=== PATIENT | male | born 1955 | race Two or more races ===

== ENCOUNTER 2024-09-24 07:17 | Inpatient (IN) | payer MEDICARE, BC, SELFPAY ==
[2024-09-24] VITALS (11 sets, daily range): BP systolic 111–188; BP diastolic 66–114; PULSE 66–126; RESP 15–94; TEMP 36.4–36.9; O2SAT 92–97; BMI 30.7
--- NOTE | 2024-09-24 | XR_ITS ---
Examination: Abdomen AP single view Technique: AP portable supine abdomen, single view Exam date and time: September 24, 2024 2056 hrs. Indications: Abdominal pain and distention today, small bowel obstruction on CT abdomen pelvis September 24, 2024 10:41 AM, 6 hour 30 minute delayed film Findings: Contrast remains in the stomach Air distended small bowel loops Impression: Small bowel obstruction pattern multiple additional delayed films will be obtained
--- NOTE | 2024-09-24 | XR_ITS ---
Examination: Abdomen AP single view Technique: AP portable supine abdomen, single view Exam date and time: September 24, 2024 at 10:53 PM Indications: Abdominal pain and distention this week, small bowel obstruction pattern on CT abdomen pelvis September 24, 2024 10:40 AM, 8 hour 30 minute delayed film post small bowel series Findings: Contrast remains essentially in the stomach Air distended small bowel loops Impression: Small bowel obstruction pattern Multiple additional delayed films will be obtained
--- NOTE | 2024-09-24 07:53 | PC.NURSE ---
PT COMING IN FROM LOBBY WITH C/O GENERAL LOWER ABD PAIN X1 DAY; PT HAS HX OF COLORECTAL CANCER WITH BOWEL SURGERY IN 2015 WELL HYPERTENSION. PER PT, I'M CURRENTLY ON REMISSION. PT HAS OSTOMY BAG, AND PER PT, IT FEELS LIKE IT'S PLUGGED UP. WE TRIED FLUSHING IT LAST NIGHT BUT IT DIDN'T WORK. NOTHING HAS COME OUT. PT CONNECTED TO MONITORS AT THIS TIME.
--- NOTE | 2024-09-24 07:54 | PC.NURSE ---
DR. MCKEON AT BEDSIDE ASSESSING PT.
--- NOTE | 2024-09-24 08:08 | EKG_ITS ---
[facility] Test Date: 2024-09-24 Pat Name: LORI MACIAS Department: Room: - Gender: Male Leadership Recruiter: : [id number] Requested By: Julio Mata Order Number: [id number] Reading MD: Julio Mata Measurements Intervals [place] Rate: 100 P: 10 VT: 156 QRS: -87 QRSD: 87 T: 42 QT: 345 QTc: 447 Interpretive Statements SINUS TACHYCARDIA PATTERN CONSISTENT WITH PULMONARY DISEASE LEFT ANTERIOR FASCICULAR BLOCK [QRS AXIS <= -45, QR IN I, RS IN II] Compared to ECG 10/10/2023 12:22:58 Left anterior fascicular block now present Sinus rhythm no longer present /store/S0/[id number].pdf
[2024-09-24] MEDS: MORPHINE SULF INJ 10 MG/ML VIAL 4 MG IVP (08:21)
[2024-09-24] MEDS: ONDANSETRON INJ 2 MG/ML INJ 2 ML 4 MG IV ×3 (08:21→16:26)
[2024-09-24] MEDS: SODIUM CHLORIDE 0.9% 1000 ML 1,000 ML 999 ML IV ×2 (08:24→11:19)
--- NOTE | 2024-09-24 08:29 | PD.EDADULT ---
ED General RME/HPI General Chief complaint: Abdominal Pain Stated complaint: Abdominal pain, vomiting Time Seen by Provider: 09/24/24 08:05 Arrival date/time: 09/24/24 07:17 RME / HPI RME / HPI narrative: 69-year-old male with a history of colon cancer status post partial colectomy (+ colostomy), who presents to the emergency department with 2 days of worsening diffuse abdominal pain and no colostomy output. He also started noticing copious belching and nausea and vomiting. He is unclear whether or not he has flatus/air into his colostomy. Patient states this is similar to 2018 when he had a bowel blockage . Related Data Home Medications ?Medication ?Instructions ?Recorded ?Confirmed tamsulosin 0.4 mg capsule (Flomax) 0.4 mg PO QDAY ##0 11/30/16 Allergies Allergy/AdvReac Type Severity Reaction Status Date / Time NKA* Allergy Uncoded 09/24/24 08:24 Review of Systems Review of Systems Systems Reviewed: All systems reviewed, normal except as documented ED Exam Narrative Physical exam: GENERAL APPEARANCE: AxOx4, generally well-appearing, no acute distress. HEENT: NC, AT. MMM. EOMI, clear conjunctiva, oropharynx clear. NECK: Supple without lymphadenopathy. No stiffness or restricted ROM. HEART: Normal rate and regular rhythm, normal S1/S1, no m/r/g LUNGS: CTAB, moving air well. No crackles or wheezes are heard. ABDOMEN: Soft, but distended, tympanitic, with diffuse abdominal pain, colostomy stoma intact. With good bowel sounds heard. BACK: No midline C/T/L spine pain or deformity, No CVAT, no obvious deformity. EXTREMITIES: Without cyanosis, clubbing or edema. MUSCULOSKELETAL: FROM of all major joints, no chest tenderness NEUROLOGICAL: Grossly nonfocal. Alert and oriented, moving all 4 extremities. CN not formally tested but appear grossly intact. Observed to ambulate with normal gait. Skin: Warm and dry without any rash. Course Quality Measures none Orders Category Date Time Status CT Screening NOW Care 09/24/24 08:56 Active EKG (ED ONLY) *Do not use* NOW Care 09/24/24 08:09 Completed Insert NG / OG tube NOW Care 09/24/24 12:20 Active NG / OG Tube to LIS NOW Care 09/24/24 12:[address] abdomen pelvis w con Stat Exams 09/24/24 08:56 Completed EKG (ED Only) Stat Exams 09/24/24 08:08 Draft CBC Stat Lab 09/24/24 07:55 Completed CMP [Comprehensive Metabolic Panel] Stat Lab 09/24/24 07:55 Completed Morphine Inj Med 09/24/24 08:10 Discontinued 4 mg IVP X1 ONE Morphine Inj Med 09/24/24 09:38 Discontinued 6 mg IVP X1 ONE Ondansetron Inj [Zofran Inj] Med 09/24/24 08:11 Discontinued 4 mg IV X1 ONE Ondansetron Inj [Zofran Inj] Med 09/24/24 09:44 Discontinued 4 mg IV X1 ONE Sodium Chloride 0.9% 1000 ml [Ns] 1,000 ml Med 09/24/24 08:10 Discontinued IV 999 mls/hr Sodium Chloride 0.9% 1000 ml [Ns] 1,000 ml Med 09/24/24 11:16 Discontinued IV 999 mls/hr Vital Signs Vital signs: Vital Signs Temperature 97.9 F 09/24/24 07:28 Pulse Rate 126 H 09/24/24 07:28 Respiratory Rate 16 09/24/24 07:28 Blood Pressure 111/66 09/24/24 07:28 Pulse Oximetry (%) 94 L 09/24/24 07:28 Oxygen Delivery Method Room Air 09/24/24 07:28 [facility] Patient data External records reviewed:: [facility] Clinical information provided by:: patient Social determinants that could affect healthcare access:: none Patient has the following chronic illnesses:: Hypertension, colostomy How is presenting disease/condition affected by chronic disease/condition?: uneffected by Evaluation data The following diagnostics were reviewed and interpreted by me:: lab results and radiology exam(s) Lab and/or radiology exams considered but not ordered:: None Interpretation Summary: As per narrative Medications Medications considered but not ordered:: None Medication administrations:: Medication Administration History Discontinued Medications Sodium Chloride (Ns) 1,000 mls @ 999 mls/hr IV .Q1H1M ONE Stop: 09/24/24 09:10 Last Infusion: 09/24/24 09:27 Dose: Infused Documented By: Admin: 09/24/24 08:24 Dose: 999 mls/hr Documented By: Sodium Chloride (Ns) 1,000 mls @ 999 mls/hr IV .Q1H1M ONE Stop: 09/24/24 12:16 Last Admin: 09/24/24 11:19 Dose: 999 mls/hr Documented By: GM Morphine Sulfate (Morphine Sulf Inj 10 Mg/Ml Vial) 4 mg IVP X1 ONE Stop: 09/24/24 08:11 Last Admin: 09/24/24 08:21 Dose: 4 mg Documented By: GM Morphine Sulfate (Morphine Sulf Inj 10 Mg/Ml Vial) 6 mg IVP X1 ONE Stop: 09/24/24 09:39 Last Admin: 09/24/24 09:48 Dose: 6 mg Documented By: GM Ondansetron HCl (Ondansetron Inj 2 Mg/Ml Inj 2 Ml) 4 mg IV X1 ONE; Protocol Stop: 09/24/24 08:12 Last Admin: 09/24/24 08:21 Dose: 4 mg Documented By: GM Ondansetron HCl (Ondansetron Inj 2 Mg/Ml Inj 2 Ml) 4 mg IV X1 ONE; Protocol Stop: 09/24/24 09:45 Last Admin: 09/24/24 09:48 Dose: 4 mg Documented By: GM Above Consultations Consultation(s) initiated? (list below): No Diagnosis Differential Diagnosis ED Complaint MDM: Small bowel obstruction, constipation, stricture Most likely diagnosis given after review of the tests above:: Small bowel obstruction Admission Indicated Admission indicated?: indicated Explain why admission is indicated or not indicated:: As per narrative Admission Request Was there a request for admission?: Yes Admission Attestation Admission request attestation: Discussed case with [Dr. Bro] from Hospitalist service regarding admission. Discussed patients ED course, exam findings, labs, and radiology results. The Hospitalist [agrees] to accept the patient for admission. Disposition Plan Disposition Plan: Admit Medical Decision Making MDM Narrative MDM Narrative: 69-year-old male with a history of abdominal surgery/partial colectomy, small bowel obstruction presents emerged department subjective symptoms consistent with a small bowel obstruction. Patient was controlled symptomatically with IV pain medicines and antiemetics. IV fluids were started. CT confirms a high-grade mechanical small bowel obstruction. Case was discussed with hospital service and agrees to admit. Differential Diagnosis Differential Diagnosis: Small bowel obstruction, constipation, stricture Lab Data 09/24/24 07:55 09/24/24 07:55 Labs: Lab Results 09/24/24 Range/Units 07:55 WBC 11.6 H (3.8-10.6) Thou/mm3 RBC 5.70 (4.50-5.90) Miln/mm3 Hgb 17.7 H* (13.5-16.0) g/dL Hct 49.2 (41.0-53.0) % MCV 86 (80-100) fL MCH 31.1 (25.0-35.0) pg MCHC 36.0 (31.0-37.0) g/dl RDW Std Deviation 39.0 (35.1-43.9) fL Plt Count 253 (140-440) Thou/mm3 Neut % (Auto) 89 H (37-80) % Lymph % (Auto) 5 L (10-50) % [place] % (Auto) 5 (0-12) % Eos % (Auto) 0 (0-10) % Baso % (Auto) 0 (0-2.5) % Neut # (Auto) 10.3 H (1.8-7.7) Thou/mm3 Lymph # (Auto) 0.6 L (1.0-4.8) Thou/mm3 [place] # (Auto) 0.6 (0.0-0.8) Thou/mm3 Eos # (Auto) 0.0 (0.0-0.5) Thou/mm3 Baso # (Auto) 0.0 (0.0-0.2) Thou/mm3 Immature Gran # (Auto) 0.04 H (0.00-0.00) Thou/mm3 Absolute Nucleated RBC 0.00 (0.00-0.00) Thou/mm3 Immature Gran % 0 (0-0) % Nucleated RBC % 0 (0) /100 WBC Sodium 133 L (136-145) mMol/L Potassium 4.2 (3.4-5.1) mMol/L Chloride 98 (98-107) mMol/L Carbon Dioxide 21.8 (20.0-31.0) mMol/L Anion Gap 13 (7-16) BUN 16 (9-23) mg/dL Creatinine 1.5 H (0.6-1.3) mg/dL Estim Creat Clear Calc 55.2 L (>60) mL/min eGFR 50 L (60 - ) See Note BUN/Creatinine Ratio 11 L (12-20) Ratio Glucose 189 H (74-106) mg/dL Calculated Osmolality 272 L (275-295) Calcium 11.2 H (8.3-10.6) mg/dL Corrected Calcium 11.2 H (8.5-10.1) mg/dL Total Bilirubin 1.1 (0.3-1.2) mg/dL AST 30 (0-34) U/L ALT 39 (10-49) U/L Alkaline Phosphatase 84 (46-116) U/L Total Protein 7.7 (5.7-8.2) gm/dL Albumin 4.8 (3.4-4.8) gm/dL Globulin 2.9 (2.3-3.5) gm/dL Albumin/Globulin Ratio 1.7 (1.2-2.2) Discharge Plan Plan Patient Disposition: Admit Acute Care w/in Hospital Prescriptions/Referrals Prescriptions/Med Rec: No Action tamsulosin [Flomax] 0.4 MG capsule,extended release 24hr 0.4 mg PO QDAY Qty: 0 Referrals: Phyllis Sánchez FNP [Primary Care Provider] - In 1 week Problem List Clinical Impression: Complete small bowel obstruction Patient/Caregiver Discharge Instructions Print Language: Kittitian Stand Alone Forms: Kristel Award Info., Patient Portal Info Letter
[2024-09-24 08:49] LABS: Basophils % (Auto) 0 % (0-2.5); Eosinophils % (Auto) 0 % (0-10); Hematocrit 49.2 % (41.0-53.0); Hemoglobin 17.7 g/dL (13.5-16.0); Immature Granulocytes % (Auto) 0 % (0-0); Immature Granulocytes Auto 0.04 Thou/mm3 (0.00-0.00); Lymphocytes # (Auto) 0.6 Thou/mm3 (1.0-4.8); Lymphocytes % (Auto) 5 % (10-50); Mean Corpuscular Hemoglobin 31.1 pg (25.0-35.0); Mean Corpuscular Volume 86 fL (80-100); Monocytes # (Auto) 0.6 Thou/mm3 (0.0-0.8); Monocytes % (Auto) 5 % (0-12); Neutrophils # (Auto) 10.3 Thou/mm3 (1.8-7.7); Neutrophils % (Auto) 89 % (37-80); Nucleated Red Blood Cell % 0 /100 WBC (0); Platelet Count 253 Thou/mm3 (140-440); White Blood Count 11.6 Thou/mm3 (3.8-10.6)
--- NOTE | 2024-09-24 08:56 | XR_ITS ---
Examination: CT abdomen with intravenous contrast CT pelvis with intravenous contrast 2-D coronal reconstructions 2-D sagittal reconstructions Date and time of exam:September 24, 2024 10:40 AM Comparison November 30, 2016. Abdominal pain at the colostomy site, no bowel movement beginning 2 days ago CTDI: vol (mGy) 9.73 DLP: (mGycm) 640 Technique: Multiple axial sections of the abdomen and pelvis have been obtained. 64 slice high-resolution scanner used. 3 mm axial sections have been obtained, post intravenous injection 30 cc [id number] 2-D sagittal, coronal reconstructions obtained. Low dose protocols were performed. One or more of the following dose reduction techniques were used; automated exposure control, adjustment of the mA and/or KV according to patient size, use of iterative reconstruction technique. Findings: Mild atelectasis in the lower lung zones No focal liver lesions Multiple gallstones Gallbladder wall does not appear thickened Spleen is not enlarged No pancreatic or adrenal mass No renal or ureteral calculi, no hydronephrosis Numerous fluid distended small bowel loops, small bowel obstruction pattern This does not appear to be secondary to incarcerated bowel at the colostomy site Normal appendix Postoperative changes rectosigmoid with scarring in the perirectal region Bladder intact Impression: High-grade mechanical small bowel obstruction, consider Gastrografin small bowel series follow-up
[2024-09-24 09:18] LABS: Alanine Aminotransferase 39 U/L (10-49); Albumin, Serum 4.8 gm/dL (3.4-4.8); Albumin/Globulin Ratio 1.7 (1.2-2.2); Alkaline Phosphatase 84 U/L (46-116); Anion Gap 13 (7-16); Aspartate Amino Transferase 30 U/L (0-34); BUN/Creatinine Ratio 11 Ratio (12-20); Bilirubin,Total 1.1 mg/dL (0.3-1.2); Blood Urea Nitrogen 16 mg/dL (9-23); Calcium 11.2 mg/dL (8.3-10.6); Calcium (Corrected) 11.2 mg/dL (8.5-10.1); Carbon Dioxide 21.8 mMol/L (20.0-31.0); Chloride 98 mMol/L (98-107); Creatinine (Component) 1.5 mg/dL (0.6-1.3); Estimated Creatinine Clearance 55.2 mL/min (>60); Globulin 2.9 gm/dL (2.3-3.5); Glucose 189 mg/dL (74-106); Osmolality,Calculated 272 (275-295); Potassium 4.2 mMol/L (3.4-5.1); Sodium 133 mMol/L (136-145); Total Protein 7.7 gm/dL (5.7-8.2); eGFR 50 See Note
--- NOTE | 2024-09-24 09:39 | PC.NURSE ---
DR. MCKEON NOTIFIED OF PATIENT'S COMPLAINT OF 8/10 PAIN AND NEW ORDER RECEIVED FOR MORPHINE 6MG IV ONCE NOW.
[2024-09-24] MEDS: MORPHINE SULF INJ 10 MG/ML VIAL 6 MG IVP (09:48)
--- NOTE | 2024-09-24 11:01 | PC.NURSE ---
DR. MCKEON MADE AWARE PT STILL TACHYCARDIC AT 109 AND WBC ELEVATED. RN SEEKING CLARIFICATION FORM DR. MCKEON IF SEPSIS ALERT TO BE INITIATED; PER DR. MCKEON, DON'T INITIATE SEPSIS ALERT AT THIS TIME; PT WAS VOMITING. GIVE ANOTHER 1L OF NS BOLUS TO PT FOR NOW.
--- NOTE | 2024-09-24 13:05 | XR_ITS ---
Examination: Small bowel series with KUB Exam date and time: 04/24/2024 1425 hrs. Indications: Abdominal pain and distention this week, constipation, no bowel movement beginning 2 days ago through colostomy site Technique And Findings: AP portable supine abdomen obtained labeled 1 minute with contrast to document: Extensive air distended small bowel loops noted Cholelithiasis Impression: Small bowel obstruction pattern Numerous additional delayed films will be obtained
--- NOTE | 2024-09-24 13:14 | XR_ITS ---
Examination: AP chest portable single view Technique: AP portable chest single view Exam date and time: September 24, 2024 1318 hrs. Indications: Post orogastric tube placement Findings: Orogastric tube sidehole is at the GE junction Normal heart size Ectatic thoracic aorta No lobar pneumonia or pulmonary edema Impression: Advance the orogastric tube 7 cm
--- NOTE | 2024-09-24 13:16 | ESHP_ITS ---
Documentation for date of: 09/24/24 HPI History of Present Illness History of present illness: This is a 69-year-old male with PMHx of colon cancer s/p colectomy versus partial colectomy in 2014 permanent ostomy bag, previous SBO in 2018, hypertension, sciatica nerve pain and BPH, presenting with 4 days of constipation and abdominal pain. Stools was 4 days ago and was hard and nonbloody. This morning patient felt more nauseous, and vomited the contents once. Patient states he takes DOCUSATE daily at home for constipation, however admitted to decreased oral intake this to weather change. Denies headaches, LOC, fever, chills, abnormal weight loss or weight gain, chest pain, shortness of breath, diarrhea, or urinary symptoms. ED COURSE: Afebrile, BP 134/87, HR 126, satting 94% on 3 L. EKG sinus tachycardia, no acute ST changes. Hemoglobin 17.7, WBC 11.6, PLT 253. Sodium 133, creatinine 1.5, calcium 11.2. UA negative for UTI. CT abdomen showed High-grade mechanical small bowel obstruction. Patient started on NGT suction and fluid resuscitation. Internal medicine team consulted. Will admit patient for SBO and JUAN. PMHx: s/p colectomy versus partial colectomy in 2014 permanent ostomy bag, previous SBO in 2018, hypertension, sciatica nerve pain and BPH PSHx: Colectomy 2014 MEDS: METOPROLOL, GABAPENTIN, DOCUSATE, FLOMAX ALLERGIES: NKA SH: Denies tobacco, EtOH or drug use. Review of Systems Review of Systems Systems Reviewed: All systems reviewed, normal except as documented Exam Vital Signs Temp Pulse Resp BP Pulse Ox O2 Del Method O2 Flow Rate 98.1 F 115 H 18 134/87 H 95 Nasal Cannula 3 09/24/24 13:00 09/24/24 13:00 09/24/24 13:00 09/24/24 13:00 09/24/24 13:00 09/24/24 13:00 09/24/24 13:00 Narrative Exam 3 GENERAL Normal appearing elderly male, in mild distress due to pain and constipation HEENT NCAT.?[place]. Oral mucosa slightly dry. Patent Nares NECK Supple, nontender, no thyromegaly, no meningismus, no JVD, no step offs HEART Tachycardic, regular rhythm, no m/g/r LUNGS CTAB, no w/r/r. Symmetrical chest rise. No intercostal subcostal retraction ABDOMEN Distended, tense, mildly tender to palpation, no guarding or rebound, overall decreased bowel sounds throughout. Ostomy bag in place, empty and intact. EXTREMITIES Nontender.? No edema/cyanosis.?Moves all 4 extremities well, with full ROM and good CSM SKIN Warm and dry, no jaundice/rashes MSK No lumbar or midline, no CVA, no paraspinal muscle spasm or tenderness NEURO BRUCE x4, CN II-XII grossly intact.?No focal neurologic deficits PSYCH Normal mood and affect, cooperative, no SI or HI or hallucinations Results: Labs 09/24/24 07:55 09/24/24 07:55 Labs: Short CBC 09/24/24 Range/Units 07:55 WBC 11.6 H (3.8-10.6) Thou/mm3 Hgb 17.7 H* (13.5-16.0) g/dL Hct 49.2 (41.0-53.0) % Plt Count 253 (140-440) Thou/mm3 BMP 09/24/24 07:55 Sodium 133 L Potassium 4.2 Chloride 98 Carbon Dioxide 21.8 BUN 16 Creatinine 1.5 H Glucose 189 H Calcium 11.2 H Liver Function 09/24/24 Range/Units 07:55 Total Bilirubin 1.1 (0.3-1.2) mg/dL AST 30 (0-34) U/L ALT 39 (10-49) U/L Alkaline Phosphatase 84 (46-116) U/L Albumin 4.8 (3.4-4.8) gm/dL Quality Measures Quality Measures none Advance care planning discussed with:: patient Medications Home Medications and Allergies Home Medications ?Medication ?Instructions ?Recorded ?Confirmed ?Type tamsulosin 0.4 mg capsule (Flomax) 0.4 mg PO QDAY ##0 11/30/16 History Allergies Allergy/AdvReac Type Severity Reaction Status Date / Time NKA* Allergy Uncoded 09/24/24 08:24 Visit Medications Discontinued Medications Sodium Chloride (Ns) 1,000 mls @ 999 mls/hr IV .Q1H1M ONE Stop: 09/24/24 09:10 Last Infusion: 09/24/24 09:27 Dose: Infused Sodium Chloride (Ns) 1,000 mls @ 999 mls/hr IV .Q1H1M ONE Stop: 09/24/24 12:16 Last Admin: 09/24/24 11:19 Dose: 999 mls/hr Morphine Sulfate (Morphine Sulf Inj 10 Mg/Ml Vial) 4 mg IVP X1 ONE Stop: 09/24/24 08:11 Last Admin: 09/24/24 08:21 Dose: 4 mg Morphine Sulfate (Morphine Sulf Inj 10 Mg/Ml Vial) 6 mg IVP X1 ONE Stop: 09/24/24 09:39 Last Admin: 09/24/24 09:48 Dose: 6 mg Ondansetron HCl (Ondansetron Inj 2 Mg/Ml Inj 2 Ml) 4 mg IV X1 ONE; Protocol Stop: 09/24/24 08:12 Last Admin: 09/24/24 08:21 Dose: 4 mg Ondansetron HCl (Ondansetron Inj 2 Mg/Ml Inj 2 Ml) 4 mg IV X1 ONE; Protocol Stop: 09/24/24 09:45 Last Admin: 09/24/24 09:48 Dose: 4 mg Assessment & Plan Plan In summary: 69-year-old male with PMHx of colon cancer s/p colectomy versus partial colectomy in 2014 permanent ostomy bag, previous SBO in 2018, hypertension, sciatica nerve pain and BPH, admitted for acute high-grade SBO and JUAN. Patient started on NG tube suction and GASTROGRAFIN study. Continued on fluid rehydration. High-grade SBO History of colon cancer S/p colectomy, ostomy bag 2014 Presenting with 4 days of abdominal pain and constipation. Last BM 4 days ago with solids and hard, nonbloody. Patient was also nauseous and had an episode of vomiting this morning. History of SBO in 2018, required hospital admission. Distended, mildly tender abdomen with diffusely decreased bowel sounds on exam. No rigidity or guarding, no signs of peritonitis. CT abdomen showed high-grade SBO. ? Continue n.p.o. ? Continue NGT suction ? Continue small bowel series ? Continue ONDANSETRON PRN Prerenal JUAN Hypercalcemia Erythrocytosis In settings of decreased fluid intake, as reported by patient. CR 1.5 on admission, no history of renal disease. Signs of dehydration on exam, dry mucosa, tachycardia. Received 2L NS in ED. calcium 11.2, hemoglobin 17.7, likely concentration all in settings of dehydration. Anticipate improving with fluid resuscitation. ? NS maintenance at 75 cc/HR ? Renally dose meds, avoid overdiuresis and NEPHROTOXINS HTN Tachycardia History of hypertension, with home METOPROLOL tartrate 50 mg BID. Patient has not taken his meds this morning. Tachycardia likely in setting of pain and dehydration. Anticipate improvement with pain control and rehydration. ? Continue METOPROLOL 5 mg IV q.6h. ? Continue IV hydration as below. ? Med/tele Chronic sciatica pain History of lumpectomy, with residual bilateral lower extremity neuropathy, managed with home GABAPENTIN. ? Holding GABAPENTIN since patient n.p.o. BPH, chronic ? Holding TAMSULOSIN since patient n.p.o. Health maintenance Diet: NPO GI prophylaxis: PROTONIX DVT prophylaxis: HEPARIN subcu Antibiotics: Not indicated CODE STATUS: DNR Disposition: Pending SBO and JUAN resolution. Patient case was discussed with attending, Dr. Nestor Fuller DO and senior residents Dr. Bro and Dr. Brand. Fadi Ludwig DO PGYI Attending Provider Attestation/Addendum I have discussed and was present for the essential components of the history, physical examination, diagnosis, and treatment plan with the resident. I agree with the patient's care as documented by the resident and amended herein by me. Sanford Fuller DO. Patient seen and evaluated this AM. Patient admitted for small bowel obstruction, NG tube placed, will continue decompression, keep the patient n.p.o. Patient was a bit tachycardic, on metoprolol tartrate at home hence we will convert to IV dosing for now and hold other p.o. medications. Small bowel series ordered, will evaluate for surgical consult if SBO does not resolve or worsens. Although this document has been carefully reviewed, there may still be some phonetic and other typographical errors. These errors are purely grammatical due to imperfections in the software program and should not be construed in any way to compromise the substance of the patient's medical care during this visit.
--- NOTE | 2024-09-24 13:41 | PC.NURSE ---
RN SPOKE TO DR. STONER TO SEEK CLARIFICATION REGARDING PO MED ORDERS; PER DR. STONER, PT HAS SBO; I WILL DISCONTINUE PT'S GABAPENTIN PO AND TAMSULOSIN PO MED; WILL CHANGE METROPOLOL MED FROM PO TO IV.
--- NOTE | 2024-09-24 13:50 | PC.NURSE ---
NG TUBE ADVANCED 7CM PER RADIOLOGIST CXR REPORT. REFRIGERATION UNIT REPAIRER AT BEDSIDE, WILL RETAKE CXR TO CONFIRM PLACEMENT AGAIN.
--- NOTE | 2024-09-24 13:54 | XR_ITS ---
Examination: AP chest single view Technique one AP portable upright chest single view Exam date and time: September 24, 2024 1403 hrs. Comparison September 24, 2024 1323 hrs. Indications: Reposition orogastric tube Findings: Orogastric tube tip satisfactory position in the stomach No major cardiac enlargement Mild vascular congestion Impression: Orogastric tube in stomach satisfactory position Cholelithiasis
[2024-09-24] MEDS: SODIUM CHLORIDE 0.9% 1000 ML 1,000 ML 75 ML IV ×2 (14:51→16:23)
[2024-09-24] MEDS: METOPROLOL TARTRATE INJ 1 MG/ML AMP 5 ML 5 MG IVP ×2 (14:52→22:20)
--- NOTE | 2024-09-24 14:58 | PC.CC ---
Pt Jason Crawford is a 69 yr old male admitted to hospitalist services for SBO. ASW met with pt and his Ramonita Crawford [phone] at bedside to complete initial assessment. At time of encounter pt is noted to be alert and oriented to person, place and situation. Pt expressed understanding admission orders. Pt able to confirm demographic information. Pt is from home [address] [place] [address], where he lives with his . 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 At baseline pt reports being independent with ambulation and in completing his ADLs. Pt does not require supplemental O2. Pt is not diabetic and is not on dialysis. Pt is followed by Phyllis Sánchez ([facility]) for primary care. At time of D/c pt will return home, with family providing transport. Pt confirmed being a DNR status and states he has an Advance Directive.
[2024-09-24] MEDS: HYDROmorphone INJ 2 MG/ML VIAL 0.5 MG IVP ×2 (16:27→20:10)
[2024-09-24] MEDS: HEPARIN SOD INJ 5000 UNIT/ML VIAL SC (20:11)
--- NOTE | 2024-09-24 22:04 | PC.NURSE ---
Addendum entered by Dari Matta RN 09/24/24 22:06: regarding patient's BP 188/110, pt is asymptomatic, no pain reported. previous BP was 163/96 HR 99 at 1999. Patient has scheduled metoprolol IVP 5 mg q6, next dose at 0000. Per doctor will review patient's chart. No new orders received at this time. Original Note: called Dr. Canales
[2024-09-25] VITALS (20 sets, daily range): BP systolic 140–190; BP diastolic 80–111; PULSE 82–114; RESP 14–22; TEMP 35.8–36.6; O2SAT 92–98
--- NOTE | 2024-09-25 | XR_ITS ---
Examination: Abdomen AP single view Technique: AP portable supine abdomen, single view Exam date and time: September 25, 2023 at 0501 hrs. Indications: 14 hour 30 minute delayed film post small bowel series, abdominal pain and distention this week Findings: Contrast in mildly distended small bowel loops Impression: Recommend follow-up KUBs now and at 11:00 AM
--- NOTE | 2024-09-25 | XR_ITS ---
Examination: Abdomen AP single view Technique: AP portable supine abdomen, single view Exam date and time: September 25, 2024 0154 hrs. Indications: Abdominal pain and distention yesterday, small bowel obstruction pattern on CT abdomen pelvis September 24, 2024, 11 hours 30 minute delayed film post small bowel series yesterday Findings: Most of the contrast is in the stomach Air distended small bowel loops noted Impression: Small bowel obstruction pattern Multiple additional delayed films will be obtained
--- NOTE | 2024-09-25 00:35 | PC.NURSE ---
notified Dr. Forrest regarding pt's BP 182/102, HR 82, patient received IVP metoprolol 5 mg at 2220. Patient is asymptomatic, not c/o pain, SOB. Per Doctor, will look into pt's chart and put orders.
[2024-09-25] MEDS: hydrALAZINE INJ 20 MG/ML VIAL 10 MG IV (02:11)
[2024-09-25] MEDS: HYDROmorphone INJ 2 MG/ML VIAL 0.5 MG IVP ×3 (04:37→21:07)
--- NOTE | 2024-09-25 05:04 | PC.NURSE ---
called Dr. Canales regarding patient having a bowel movement in his colostomy bag. Bowel was loose and large. Patient's BP 182/101, HR 99, patient c/o pain in abdomen, given dilaudid IVP, to ressess BP.
[2024-09-25] MEDS: METOPROLOL TARTRATE INJ 1 MG/ML AMP 5 ML 5 MG IVP (05:19)
[2024-09-25 05:47] LABS: Basophils % (Auto) 0 % (0-2.5); Eosinophils # (Auto) 0.2 Thou/mm3 (0.0-0.5); Eosinophils % (Auto) 5 % (0-10); Hemoglobin 15.5 g/dL (13.5-16.0); Immature Granulocytes % (Auto) 0 % (0-0); Lymphocytes # (Auto) 0.8 Thou/mm3 (1.0-4.8); Lymphocytes % (Auto) 18 % (10-50); Mean Corpuscular HGB Conc 34.4 g/dl (31.0-37.0); Mean Corpuscular Hemoglobin 30.6 pg (25.0-35.0); Mean Corpuscular Volume 89 fL (80-100); Monocytes # (Auto) 0.9 Thou/mm3 (0.0-0.8); Monocytes % (Auto) 19 % (0-12); Neutrophils # (Auto) 2.7 Thou/mm3 (1.8-7.7); Neutrophils % (Auto) 58 % (37-80); Nucleated Red Blood Cell % 0 /100 WBC (0); Platelet Count 185 Thou/mm3 (140-440); RDW Standard Deviation 41.5 fL (35.1-43.9); Red Blood Count 5.06 Miln/mm3 (4.50-5.90); White Blood Count 4.6 Thou/mm3 (3.8-10.6)
[2024-09-25 06:03] LABS: Alanine Aminotransferase 27 U/L (10-49); Albumin, Serum 4.4 gm/dL (3.4-4.8); Albumin/Globulin Ratio 1.8 (1.2-2.2); Alkaline Phosphatase 65 U/L (46-116); Anion Gap 9 (7-16); Aspartate Amino Transferase 16 U/L (0-34); BUN/Creatinine Ratio 19 Ratio (12-20); Bilirubin,Total 1.5 mg/dL (0.3-1.2); Blood Urea Nitrogen 21 mg/dL (9-23); Calcium 8.9 mg/dL (8.3-10.6); Calcium (Corrected) 8.9 mg/dL (8.5-10.1); Carbon Dioxide 24.4 mMol/L (20.0-31.0); Chloride 103 mMol/L (98-107); Creatinine (Component) 1.1 mg/dL (0.6-1.3); Estimated Creatinine Clearance 76.3 mL/min (>60); Globulin 2.4 gm/dL (2.3-3.5); Glucose 132 mg/dL (74-106); Magnesium 1.7 mg/dL (1.6-2.6); Osmolality,Calculated 276 (275-295); Phosphorous 2.7 mg/dL (2.4-5.1); Potassium 3.9 mMol/L (3.4-5.1); Sodium 136 mMol/L (136-145); Total Protein 6.8 gm/dL (5.7-8.2); eGFR > 60 See Note
--- NOTE | 2024-09-25 08:10 | PC.NURSE ---
Pt. bp of 190/111 hr 89 . Complaioning of no pain MD made aware and MD on bed side. Orders to DC NG. And at this time no new orders for BP. New orders received to move pt. to TELE bed.
[2024-09-25] MEDS: METOPROLOL TARTRATE 25 MG TABLET 50 MG PO (08:20)
--- NOTE | 2024-09-25 08:29 | PC.NURSE ---
Pt. tamsulosin pulled out. Medication advice on hold. Since seal of the medication is broken and call the pharmacy per pharmacist advice toss the medication in solid .
[2024-09-25] MEDS: HEPARIN SOD INJ 5000 UNIT/ML VIAL SC ×2 (08:34→21:07)
[2024-09-25] MEDS: Magnesium Sulfate 4 GM Ivpb 4 GM/50 ML BAG IV (09:11)
[2024-09-25] MEDS: PANTOPRAZOLE INJ 40 MG VIAL IVP (09:11)
--- NOTE | 2024-09-25 10:49 | PC.NURSE ---
BP taken on Right upper arm 162/97 and 154/94, Left upper arm 167/102, 169/102. Dr. Fuller at bedside, ok to give lisinopril and hold labetalol.
--- NOTE | 2024-09-25 11:00 | XR_ITS ---
Examination: Abdomen AP single view Technique: AP portable supine abdomen, single view Exam date and time: September 25, 2024 10:29 AM Indications: 21 hour delayed film post small bowel series yesterday, abdominal pain and distention this week, small bowel obstruction pattern on CT abdomen pelvis September 24, 2024 10:40 AM Findings: Contrast distended small bowel loops, however contrast is present in the colon on the current study Impression: Negative for complete small bowel obstruction, no further films are needed
[2024-09-25] MEDS: Lisinopril 2.5 MG TABLET 10 MG PO (11:06)
--- NOTE | 2024-09-25 13:33 | ESPR_ITS ---
Documentation for date of: 09/25/24 Subjective Subjective Interval history: Hypertensive overnight with SBP 190, resolved with one-time METOPROLOL, NIFEDIPINE and DILAUDID. Had 3 large BMs this morning, currently feeling better, although reports agitation from NG tube which was removed today. Denies fever, chills, headaches, chest pain, sob, cough, other GI or urinary symptoms. Exam Vital Signs Temp Pulse Resp BP Pulse Ox O2 Del Method O2 Flow Rate 97.2 F 84 22 H 170/96 H 92 L Room Air 1 09/25/24 12:09/25/24 12:09/25/24 12:09/25/24 12:09/25/24 12:09/25/24 12:09/25/24 07:44 Narrative Exam 3 GENERAL Normal appearing elderly male, no apparent distress HEENT NCAT.?JOHNSON. Oral mucosa moist. Patent Nares NECK Supple, nontender, no thyromegaly, no meningismus, no JVD, no step offs HEART Tachycardic, regular rhythm, no m/g/r LUNGS CTAB, no w/r/r. Symmetrical chest rise. No intercostal subcostal retraction ABDOMEN soft, nondistended, mildly tender to palpation, no guarding or rebound, overall decreased bowel sounds throughout. Ostomy bag in place, empty and intact. EXTREMITIES Nontender.? No edema/cyanosis.?Moves all 4 extremities well, with full ROM and good CSM SKIN Warm and dry, no jaundice/rashes MSK No lumbar or midline, no CVA, no paraspinal muscle spasm or tenderness NEURO RBUCE x4, CN II-XII grossly intact.?No focal neurologic deficits PSYCH Normal mood and affect, cooperative, no SI or HI or hallucinations Objective Labs 09/25/24 04:52 09/25/24 04:52 Labs: Laboratory Results - last 24 hr 09/25/24 04:52 WBC 4.6 D RBC 5.06 Hgb 15.5 D Hct 45.0 MCV 89 MCH 30.6 MCHC 34.4 RDW Std Deviation 41.5 Plt Count 185 D Neut % (Auto) 58 Lymph % (Auto) 18 [place] % (Auto) 19 H Eos % (Auto) 5 Baso % (Auto) 0 Neut # (Auto) 2.7 Lymph # (Auto) 0.8 L [place] # (Auto) 0.9 H Eos # (Auto) 0.2 Baso # (Auto) 0.0 Immature Gran # (Auto) 0.00 Absolute Nucleated RBC 0.00 Immature Gran % 0 Nucleated RBC % 0 Sodium 136 Potassium 3.9 Chloride 103 Carbon Dioxide 24.4 Anion Gap 9 BUN 21 Creatinine 1.1 Estim Creat Clear Calc 76.3 eGFR > 60 BUN/Creatinine Ratio 19 Glucose 132 H D Calculated Osmolality 276 Calcium 8.9 D Corrected Calcium 8.9 D Phosphorus 2.7 Magnesium 1.7 Total Bilirubin 1.5 H AST 16 ALT 27 Alkaline Phosphatase 65 D Total Protein 6.8 Albumin 4.4 Globulin 2.4 Albumin/Globulin Ratio 1.8 Quality Measures Quality Measures none Advance care planning discussed with:: patient Assessment & Plan Assessment Current Active Medications: Generic Name Dose Route Start Last Admin Trade Name Freq PRN Reason Stop Dose Admin Acetaminophen 650 mg 09/24/24 13:02 Acetaminophen 325 Mg Tablet PO 10/24/24 13:01 Q6H PRN Fever >100 Acetaminophen 650 mg 09/24/24 13:02 Acetaminophen 325 Mg Tablet PO 10/24/24 13:01 Q6H PRN PAIN SCALE 1-3 (mild Amlodipine Besylate 5 mg 09/25/24 13:15 Amlodipine Besylate 5 Mg Tablet PO 10/25/24 13:14 QDAY TAWNY Gabapentin 200 mg/ Gabapentin 800 mg 09/24/24 14:00 600 mg NG 10/24/24 13:59 TID TAWNY Heparin Sodium (Porcine) 5,000 unit 09/24/24 21:00 09/25/24 08:34 Heparin Sod Inj 5000 Unit/Ml Vial SC 10/08/24 21:59 5,000 unit Q12HR TAWNY Administration Hydromorphone HCl 0.5 mg 09/24/24 14:11 09/25/24 07:46 Hydromorphone Inj 2 Mg/Ml Vial IVP 09/29/24 13:51 0.5 mg Q3H PRN Administration Severe pain 7-10 Labetalol HCl 10 mg 09/25/24 13:08 Labetalol Inj 5 Mg/Ml Vial 20 Ml IVP 10/25/24 13:07 Q3H PRN SBP >170mmHg Lisinopril 10 mg 09/25/24 10:15 09/25/24 11:06 Lisinopril 2.5 Mg Tablet PO 10/25/24 10:14 10 mg QDAY TAWNY Administration Ondansetron HCl 4 mg 09/24/24 13:02 09/24/24 16:26 Ondansetron Inj 2 Mg/Ml Inj 2 Ml IV 10/24/24 13:01 4 mg Q6H PRN Administration NAUSEA OR VOMITING Protocol Oxycodone/Acetaminophen 1 tab 09/24/24 13:53 Oxycodone/Apap 5/325 Tablet PO 09/29/24 13:01 Q6H PRN PAIN SCALE 4-10(Mod-Sev Pantoprazole Sodium 40 mg 09/25/24 09:00 09/25/24 09:11 Pantoprazole Inj 40 Mg Vial IVP 10/25/24 08:59 40 mg QDAY TAWNY Administration Tamsulosin HCl 0.4 mg 09/25/24 09:00 Tamsulosin Hcl 0.4 Mg Capsule NG 10/25/24 08:59 QDAY TAWNY Plan In summary: 69-year-old male with PMHx of colon cancer s/p colectomy versus partial colectomy in 2014 permanent ostomy bag, previous SBO in 2018, hypertension, sciatica nerve pain and BPH, admitted for acute high-grade SBO and JUAN, both resolved. Hypertensive overnight, with SBP in 170-190, currently adjusting blood pressure medications. Will likely go home tomorrow if blood pressure control. Hypertensive urgency Tachycardia (resolved) History of hypertension, with home METOPROLOL tartrate 50 mg BID. SBP 170-190 overnight, resolved with NIFEDIPINE and METOPROLOL X1. No S/S of endorgan damage. Patient states he is taking METOPROLOL 50 mg once daily for blood pressure, chart review showed patient on BID dose. Denies previous or current cardiac history. Unclear if patient should be on METOPROLOL for blood pressure. Will discontinue METOPROLOL, started LISINOPRIL and AMLODIPINE as below. Will continue to monitor blood pressure adjust medications as needed. Will likely discharge once BP WNL. HR in 80s. ? Discontinue METOPROLOL 5 mg IV q.6h. ? Started LISINOPRIL 10 mg daily ? Started AMLODIPINE 5 mg daily ? Continue LABETALOL 10 mg PRN for SBP greater than 170 ? Telemetry High-grade SBO (resolved) History of colon cancer S/p colectomy, ostomy bag 2014 Presenting with 4 days of abdominal pain and constipation. Last BM 4 days ago with solids and hard, nonbloody. Patient was also nauseous and had an episode of vomiting this morning. History of SBO in 2018, required hospital admission. Distended, mildly tender abdomen with diffusely decreased bowel sounds on exam. No rigidity or guarding, no signs of peritonitis. CT abdomen showed high-grade SBO. Had 3 BMs this morning, repeat KUB showed resolution of SBO. Has mild abdominal tenderness to palpation. NG tube discontinued. Advancing clear liquid diet, patient tolerating. ? Continue ONDANSETRON PRN ? Advancing clear liquid diet as tolerated Prerenal JUAN (resolved) Hypercalcemia (resolved) Erythrocytosis (resolved) In settings of decreased fluid intake, as reported by patient. CR 1.5 on admission, no history of renal disease. Signs of dehydration on exam, dry mucosa, tachycardia. Received 2L NS in ED. calcium 11.2, hemoglobin 17.7, likely concentration all in settings of dehydration. Anticipate improving with fluid resuscitation. Hemoglobin 15.5, CR 1.1. ? Renally dose meds, avoid overdiuresis and NEPHROTOXINS Chronic sciatica pain History of lumpectomy, with residual bilateral lower extremity neuropathy, managed with home GABAPENTIN. ? Resumed GABAPENTIN 800 mg TID BPH, chronic ? Resumed TAMSULOSIN 0.4 mg daily Health maintenance Diet: NPO GI prophylaxis: PROTONIX DVT prophylaxis: HEPARIN subcu Antibiotics: Not indicated CODE STATUS: DNR Disposition: Pending SBO and JUAN resolution. Patient case was discussed with attending, Dr. Nestor Fuller DO and senior residents Dr. Bro and Dr. Brand. Fadi Ludwig DO PGYI Attending Provider Attestation/Addendum I have discussed and was present for the essential components of the history, physical examination, diagnosis, and treatment plan with the resident. I agree with the patient's care as documented by the resident and amended herein by me. Sanford Fuller DO. Patient seen and evaluated this AM. No subjective complaints this morning, pain is well-managed, patient endorses 3 large bowel movements overnight. Will remove NG tube and continue to advance diet. Follow-up KUB scheduled at 11. Blood pressure has been elevated, will start the patient on lisinopril and amlodipine. The patient came in on metoprolol to tartrate, unsure why specifically this blood pressure medication was prescribed as a first-line agent, he does not endorse any history of arrhythmias, heart failure etc. Will continue to monitor closely, likely discharge tomorrow on 09/26 if he continues to improve. Although this document has been carefully reviewed, there may still be some phonetic and other typographical errors. These errors are purely grammatical due to imperfections in the software program and should not be construed in any way to compromise the substance of the patient's medical care during this visit.
[2024-09-25] MEDS: GABAPENTIN 200 MG, GABAPENTIN 600 MG 800 MG PO ×2 (13:46→21:07)
[2024-09-25] MEDS: amLODIPine BESYLATE 5 MG TABLET PO (13:46)
[2024-09-25] MEDS: LABETALOL INJ 5 MG/ML VIAL 20 ML 10 MG IVP (18:43)
[2024-09-25] MEDS: oxyCODONE/APAP 5/325 TABLET 1 TAB PO (19:45)
[2024-09-26] VITALS (8 sets, daily range): BP systolic 137–147; BP diastolic 77–91; PULSE 91–103; RESP 15–16; TEMP 36.1–36.3; O2SAT 94–96
[2024-09-26] MEDS: GABAPENTIN 200 MG, GABAPENTIN 600 MG 800 MG PO (05:12)
[2024-09-26 06:03] LABS: Basophils % (Auto) 1 % (0-2.5); Eosinophils # (Auto) 0.4 Thou/mm3 (0.0-0.5); Eosinophils % (Auto) 7 % (0-10); Hematocrit 46.2 % (41.0-53.0); Hemoglobin 15.9 g/dL (13.5-16.0); Immature Granulocytes % (Auto) 0 % (0-0); Immature Granulocytes Auto 0.02 Thou/mm3 (0.00-0.00); Lymphocytes % (Auto) 19 % (10-50); Mean Corpuscular HGB Conc 34.4 g/dl (31.0-37.0); Mean Corpuscular Volume 90 fL (80-100); Monocytes # (Auto) 0.9 Thou/mm3 (0.0-0.8); Monocytes % (Auto) 18 % (0-12); Neutrophils % (Auto) 56 % (37-80); Nucleated Red Blood Cell % 0 /100 WBC (0); Platelet Count 196 Thou/mm3 (140-440); RDW Standard Deviation 41.4 fL (35.1-43.9); Red Blood Count 5.13 Miln/mm3 (4.50-5.90); White Blood Count 5.3 Thou/mm3 (3.8-10.6)
[2024-09-26 07:10] LABS: Alanine Aminotransferase 23 U/L (10-49); Albumin, Serum 4.5 gm/dL (3.4-4.8); Albumin/Globulin Ratio 1.9 (1.2-2.2); Alkaline Phosphatase 68 U/L (46-116); Anion Gap 9 (7-16); Aspartate Amino Transferase 18 U/L (0-34); BUN/Creatinine Ratio 18 Ratio (12-20); Bilirubin,Total 1.4 mg/dL (0.3-1.2); Blood Urea Nitrogen 22 mg/dL (9-23); Calcium 10.3 mg/dL (8.3-10.6); Calcium (Corrected) 10.3 mg/dL (8.5-10.1); Carbon Dioxide 25.2 mMol/L (20.0-31.0); Chloride 102 mMol/L (98-107); Creatinine (Component) 1.2 mg/dL (0.6-1.3); Estimated Creatinine Clearance 69.9 mL/min (>60); Globulin 2.4 gm/dL (2.3-3.5); Glucose 123 mg/dL (74-106); Magnesium 2.2 mg/dL (1.6-2.6); Osmolality,Calculated 276 (275-295); Sodium 136 mMol/L (136-145); Total Protein 6.9 gm/dL (5.7-8.2); eGFR > 60 See Note
[2024-09-26 07:24] LABS: Phosphorous 2.6 mg/dL (2.4-5.1)
[2024-09-26] MEDS: HYDROmorphone INJ 2 MG/ML VIAL 0.5 MG IVP (07:51)
--- NOTE | 2024-09-26 08:31 | PC.SS ---
Update: Plan is to d/c patient home today.
[2024-09-26] MEDS: HEPARIN SOD INJ 5000 UNIT/ML VIAL SC (08:37)
[2024-09-26] MEDS: PANTOPRAZOLE INJ 40 MG VIAL IVP (08:37)
[2024-09-26] MEDS: amLODIPine BESYLATE 5 MG TABLET PO (08:38)
[2024-09-26] MEDS: TAMSULOSIN HCL 0.4 MG CAPSULE NG (08:38)
--- NOTE | 2024-09-26 11:15 | PC.NURSE ---
Spoke with Dr. Bro about medications for blood pressure upon discharge, Md to finish Discharge orders, per md.
--- NOTE | 2024-09-26 12:07 | ESDS_ITS ---
Planned Discharge Date 09/26/24 DS: Providers Provider Date of admission: 09/24/24 13:02 Primary care physician: GENI Pollock Admitting Provider: Nestor Fuller DO Attending Provider on Admission: Nestor Fuller DO Attending Provider on DC: Nestor Fuller DO Discharging Provider: Nestor Fuller DO DS: Diagnosis Problem List Completed Was Problem List Reviewed/Reconciled?: Yes Hospital Course Hospital Course Hospital course: This is a pleasant 69-year-old male with PMHx of colon cancer s/p colectomy with permanent ostomy, previous SBO in 2018, HTN, sacral nerve pain and BPH who was admitted for high-grade SBO. Patient continued on bowel rest and small bowel series. Symptoms improved by day 2 of admissions. Patient has been having regular, nonbloody, bowel movements. Abdominal pain has improved. In addition, we adjusted home ANTIHYPERTENSIVE medications as patient was found in hypertensive urgency during this visit. We discontinued home METOPROLOL which she takes for blood pressure as doesn't have previous or current cardiac history or other indications for METOPROLOL. We started patient on AMLODIPINE 5 mg and LISINOPRIL 10 mg daily. Blood pressure within normal limits. Patient will follow-up with PCP for continued management of blood pressure. PATIENT INSTRUCTIONS: Follow up with your PCP or [facility] within 1-2 weeks of discharge. Please record daily blood pressure reading, bring record to PCP. Return to Emergency Room if symptoms persist, worsen, or new symptoms develop. Recommended using [id number] GAS-X as needed for bloating Recommended hqcu-vop-wiorsaq MIRALAX as needed for constipation Continue taking medications as prescribed below: ? LISINOPRIL 10 mg daily (NEW) ? AMLODIPINE 5 mg daily (NEW) ? GABAPENTIN 800 mg 3 times daily ? TAMSULOSIN 0.4 mg daily Discontinue taking home dose of METOPROLOL 50 mg until you see your CP ADMISSION DIAGNOSES: Hypertensive urgency Tachycardia (resolved) High-grade SBO (resolved) History of colon cancer S/p colectomy, ostomy bag 2014 Prerenal JUAN (resolved) Hypercalcemia (resolved) Erythrocytosis (resolved) Chronic sciatica pain BPH, chronic Patient case was discussed with attending, Dr. Nestor Fuller DO and senior residents Dr. Bro and Dr. Brand. Fadi Ludwig DO PGYI Time Spent with Patient Time attestation: Total time spent providing and/or coordinating discharge services: Greater than 35 minutes. Exam Vital Signs Temp Pulse Resp BP Pulse Ox O2 Del Method O2 Flow Rate 97.3 F 94 16 143/91 H 94 L Room Air 1 09/26/24 11:39 09/26/24 11:39 09/26/24 11:39 09/26/24 11:39 09/26/24 11:39 09/26/24 11:39 09/25/24 07:44 Narrative Exam GENERAL Normal appearing elderly male, no apparent distress HEENT NCAT.?JOHNSON. Oral mucosa moist. Patent Nares NECK Supple, nontender, no thyromegaly, no meningismus, no JVD, no step offs HEART Tachycardic, regular rhythm, no m/g/r LUNGS CTAB, no w/r/r. Symmetrical chest rise. No intercostal subcostal retraction ABDOMEN soft, nondistended, nontender, no guarding or rebound, overall decreased bowel sounds throughout. Ostomy bag in place, empty and intact. EXTREMITIES Nontender.? No edema/cyanosis.?Moves all 4 extremities well, with full ROM and good CSM SKIN Warm and dry, no jaundice/rashes MSK No lumbar or midline, no CVA, no paraspinal muscle spasm or tenderness NEURO BRUCE x4, CN II-XII grossly intact.?No focal neurologic deficits PSYCH Normal mood and affect, cooperative, no SI or HI or hallucinations Discharge Plan Plan Patient Disposition: HOME (Self Care) Patient condition on transfer: Stable Prescriptions/Referrals Prescriptions/Med Rec: New amlodipine 5 mg Tablet 5 mg PO QDAY 30 Days Qty: 30 0RF lisinopril 10 mg tablet 10 mg PO QDAY 30 Days Qty: 30 0RF gabapentin 400 mg Capsule 800 mg PO TID Qty: 0 0RF Continued tamsulosin [Flomax] 0.4 MG capsule,extended release 24hr 0.4 mg PO QDAY Qty: 0 Referrals: Phyllis Sánchez FNP [Primary Care Provider] - Patient/Caregiver Discharge Instructions Other Discharge Activity Instructions:: Follow up with your PCP or [facility] (address below) within 1-2 weeks of discharge. Please record daily blood pressure reading, bring record to PCP. Return to Emergency Room if symptoms persist, worsen, or new symptoms develop. Recommended using [id number] GAS-X as needed for bloating Recommended [id number]-xdf-icuexdw MIRALAX as needed for constipation Continue taking medications as prescribed below: ? LISINOPRIL 10 mg daily (NEW) ? AMLODIPINE 5 mg daily (NEW) ? GABAPENTIN 800 mg 3 times daily ? TAMSULOSIN 0.4 mg daily Discontinue taking home dose of METOPROLOL 50 mg until you see your CP [facility] [address] [place], [place] [id number] Education Materials: Small Bowel Obstruction, Colostomy: Managing Your Nutrition Print Language: Andorran Stand Alone Forms: Kristel Award Info., Patient Portal Info Letter Discharge Order Discharge Orders: Discharge (Routine); Ordered 09/26/24 Ordered By: Fadi Ludwig Quality Discharge Quality Measures VTE prophylaxis Attestestation MD Attestation I have discussed and was present for the essential components of the discharge history, physical examination, diagnosis, and discharge treatment plan with the resident. I agree with the patient's discharge care as documented by the resident and amended herein by me. Sanford Fuller, . The patient understood all discharge instructions, all questions were answered satisfactorily. The patient was instructed to return to the Emergency Department is symptoms worsened or persisted. Patient was stable, afebrile, tolerating p.o. intake and ambulatory at time of discharge. Patient had multiple BMs at discharge, pain has resolved all questions answered by patient as well. Although this document has been carefully reviewed, there may still be some phonetic and other typographical errors. These errors are purely grammatical due to imperfections in the software program and should not be construed in any way to compromise the substance of the patient's medical care during this visit.
== END 2024-09-26 13:22 | disposition home or self-care (01) | DRG 389 ==
LOC: SERX 12:33 → SERHOLD 13:24 → S3SX 15:11 → S2NX 09-25 09:54
PROVIDERS: Admitting Provider Student in an Organized Health Care Education/Training Program; Emergency Provider Emergency Medicine; PCP Nurse Practitioner; Visit Provider Student in an Organized Health Care Education/Training Program
DX: K56.691 Other complete intestinal obstruction (principal); N17.9 Acute kidney failure, unspecified; I16.0 Hypertensive urgency; E86.0 Dehydration; N40.0 Benign prostatic hyperplasia without lower urinary tract symptoms; I10 Essential (primary) hypertension; M54.30 Sciatica, unspecified side; D75.1 Secondary polycythemia; E83.52 Hypercalcemia; G89.29 Other chronic pain; G57.93 Unspecified mononeuropathy of bilateral lower limbs; Z66 Do not resuscitate; Z93.3 Colostomy status; Z85.038 Personal history of other malignant neoplasm of large intestine; Z79.899 Other long term (current) drug therapy; Z87.19 Personal history of other diseases of the digestive system; Z90.49 Acquired absence of other specified parts of digestive tract
CPT/HCPCS: 36415; 74018; 74177; 74250; 80053; 83735; 84100; 85025; 93005; 93225; 96361; 96374; 96375; 96376; 99285; A4649; J0360; J1643; J2270; J2405; J2470; J3475; J3490; J7030; Q9967; A9270; J1644; J1920